=== PATIENT | female | born 1960 | race Hispanic/Latino ===

== ENCOUNTER 2023-07-01 15:12 | Emergency (ER) | payer MEDICAID ==
[~2023-07-01] VITALS: Ht 152.4 cm; Wt 81.6 kg
[2023-07-01 15:59] LABS: BASOPHILS # (AUTO) 0.06 K/uL (0.00-0.20); BASOPHILS % (AUTO) 0.4 % (0.0-5.0); EOSINOPHILS # (AUTO) 0.03 K/uL (0.00-0.70); EOSINOPHILS % (AUTO) 0.2 % (0.0-8.0); HEMATOCRIT 43.3 % (36-48); IMMATURE GRANULOCYTE ABSOLUTE 0.11 K/uL (0-1); LYMPHOCYTES # (AUTO) 1.6 K/uL (1.0-4.8); LYMPHOCYTES % (AUTO) 10.2 % (21.0-51.0); MEAN CORPUSCULAR HGB CONC 32.8 g/dL (32.0-36.0); MEAN CORPUSCULAR VOLUME 88.5 fL (79-99); MONOCYTES # (AUTO) 0.6 K/uL (0.1-1.0); MONOCYTES % (AUTO) 3.9 % (3.0-13.0); NEUTROPHILS # (AUTO) 13.6 K/uL (1.8-7.7); NEUTROPHILS % (AUTO) 84.6 % (40.0-77.0); PLATELET COUNT (AUTO) 298 K/uL (130-400); RED BLOOD CELL COUNT(AUTO) 4.89 MIL/uL (4.00-5.50)
[2023-07-01 16:20] LABS: ALBUMIN 3.6 g/dL (3.5-5.0); BILIRUBIN,TOTAL 0.2 mg/dL (0.2-1.0); TOTAL PROTEIN, SERUM 8.2 g/dL (6.0-8.3)
[2023-07-01] MEDS ORDERED: 0.9%NACL 1000ML 1,000 ML IV ONE (16:30)
[2023-07-01] MEDS ORDERED: ONDANSETRON 4MG INJ IVP ONE (16:30)
[2023-07-01 17:52] LABS: APPEARANCE,URINE CLEAR (CLEAR); BILIRUBIN,URINE NEGATIVE (NEGATIVE); COLOR,URINE LIGHT-YELLOW (YELLOW); GLUCOSE, URINE (UA) NEGATIVE (NEGATIVE); KETONES,URINE NEGATIVE (NEGATIVE); LEUKOCYTE ESTERASE ,URINE NEGATIVE Leu/uL (NEGATIVE); NITRATE,URINE NEGATIVE (NEGATIVE); OCCULT BLOOD,URINE NEGATIVE (NEGATIVE); PROTEIN,URINE 10 mg/dL (NEGATIVE); UROBILINOGEN,URINE 0.2 mg/dL (0.2-1.0)
[2023-07-01 17:59] LABS: ADD UA MICROSCOPIC YES
[2023-07-01 18:01] LABS: BACTERIA,URINE RARE /HPF (None Seen); SQUAMOUS EPITHELIAL CELL,UR FEW /HPF (0-2); WBC,URINE 0-1 /HPF (0-1); YEAST,URINE BUDDING FEW /HPF (None Seen)
[2023-07-01 18:06] VITALS: BP 148/56; PULSE 68; RESP 18; O2SAT 98
[2023-07-01] MEDS ORDERED: SULF1TAB42 PO (18:22)
[2023-07-01] MEDS ORDERED: ONDA4TAB10 PO (18:22)
== END 2023-07-01 18:41 | disposition home or self-care (01) ==
LOC: EDH 15:12
DX: L03.113 Cellulitis of right upper limb (principal); R11.2 Nausea with vomiting, unspecified; R42 Dizziness and giddiness; I10 Essential (primary) hypertension; E11.9 Type 2 diabetes mellitus without complications; E78.00 Pure hypercholesterolemia, unspecified; Z79.899 Other long term (current) drug therapy
CPT/HCPCS: 99285; 96374; 71045; 96361; 84484; 80053; 85025; 87040 ×2; 83605; 81001; 36415; 93005; J2405

== ENCOUNTER → 2024-01-17 | Outpatient (CLI) | payer MEDICAID ==
[~2024-01-17] MED LIST: ONDA4TAB10 PO; SULF1TAB42 PO
== END | disposition home or self-care (01) ==
LOC: RAH 08:33
PROVIDERS: ATTEND Family Medicine
DX: R10.13 Epigastric pain (principal); K80.20 Calculus of gallbladder without cholecystitis without obstruction; K76.0 Fatty (change of) liver, not elsewhere classified
CPT/HCPCS: 76700

== ENCOUNTER 2024-03-15 00:23 | Observation (INO) | payer MEDICAID ==
[~2024-03-15] VITALS: Ht 152.4 cm; Wt 88.9 kg
[2024-03-15 00:51] LABS: APPEARANCE,URINE CLEAR (CLEAR); BILIRUBIN,URINE NEGATIVE (NEGATIVE); COLOR,URINE LIGHT-YELLOW (YELLOW); GLUCOSE, URINE (UA) NEGATIVE (NEGATIVE); KETONES,URINE NEGATIVE (NEGATIVE); LEUKOCYTE ESTERASE ,URINE NEGATIVE Leu/uL (NEGATIVE); NITRATE,URINE NEGATIVE (NEGATIVE); PROTEIN,URINE 70 mg/dL (NEGATIVE); UROBILINOGEN,URINE 0.2 mg/dL (0.2-1.0)
[2024-03-15 00:53] LABS: ADD UA MICROSCOPIC YES
[2024-03-15 00:54] LABS: WBC,URINE 0-1 /HPF (0-1)
[2024-03-15 01:01] LABS: BASOPHILS # (AUTO) 0.04 K/uL (0.00-0.20); BASOPHILS % (AUTO) 0.2 % (0.0-5.0); EOSINOPHILS # (AUTO) 0.01 K/uL (0.00-0.70); EOSINOPHILS % (AUTO) 0.1 % (0.0-8.0); HEMATOCRIT 42.3 % (36-48); IMMATURE GRANULOCYTE ABSOLUTE 0.11 K/uL (0-1); LYMPHOCYTES % (AUTO) 5.1 % (21.0-51.0); MEAN CORPUSCULAR HEMOGLOBIN 28.9 pg (27.0-33.0); MEAN CORPUSCULAR HGB CONC 33.6 g/dL (32.0-36.0); MEAN CORPUSCULAR VOLUME 86.2 fL (79-99); MONOCYTES # (AUTO) 0.7 K/uL (0.1-1.0); MONOCYTES % (AUTO) 3.7 % (3.0-13.0); NEUTROPHILS # (AUTO) 17.7 K/uL (1.8-7.7); NEUTROPHILS % (AUTO) 90.3 % (40.0-77.0); PLATELET COUNT (AUTO) 293 K/uL (130-400); RED BLOOD CELL COUNT(AUTO) 4.91 MIL/uL (4.00-5.50); RED CELL DISTRIBUTION WIDTH 13.8 % (11.0-15.5); WHITE BLOOD COUNT (AUTO) 19.6 K/uL (4.8-10.8)
[2024-03-15] MEDS: ACETAMINOPHEN 500 MG TABLET PO ONE (01:06)
[2024-03-15] MEDS: ONDANSETRON 4MG INJ IVP ONE (01:06)
[2024-03-15 01:17] LABS: RAPID GROUP A STREP negative (NEGATIVE)
[2024-03-15 01:24] LABS: CREATININE 1.3 mg/dL (0.5-1.0); POTASSIUM 3.7 mmol/L (3.5-5.1)
[2024-03-15 01:25] LABS: SARS-CoV-2, RNA, NAAT NEGATIVE SARS CoV-2 (NEGATIVE)
[2024-03-15 01:28] LABS: INFLUENZA TYPE A Negative For Type A (NEGATIVE); INFLUENZA TYPE B Negative For Type B (NEGATIVE)
[2024-03-15 01:29] LABS: B-TYPE NATRIURETIC PEPTIDE 82 pg/mL (0-100)
[2024-03-15 01:31] LABS: ALBUMIN 3.7 g/dL (3.5-5.0); BILIRUBIN,TOTAL 0.7 mg/dL (0.2-1.0); TOTAL PROTEIN, SERUM 8.6 g/dL (6.0-8.3)
[2024-03-15 02:36] VITALS: TEMP 99
[2024-03-15] MEDS ORDERED: IBUP-1493 PO (03:50)
[2024-03-15] MEDS ORDERED: ONDA-104 PO (03:50)
[2024-03-15] MEDS: ZOSYN 3.375GM +NS 50ML IV ONE (05:55)
[2024-03-15] MEDS ORDERED: LACTULOSE 20 GM/30 ML UDCUP PO PRN (07:00)
[2024-03-15] MEDS ORDERED: HYDROMORPHONE 0.5 MG SYG (0.5MG/0.5ML) IV PRN (07:00)
[2024-03-15] MEDS ORDERED: ACETAMINOPHEN 325 MG TAB PO PRN (07:00)
[2024-03-15] MEDS ORDERED: NITROGLYCERIN 0.4 MG SL TAB SL PRN (07:00)
[2024-03-15] MEDS ORDERED: FAMOTIDINE 20MG VIAL IV PRN (07:00)
[2024-03-15] MEDS ORDERED: MAG/ALUM/SIMETH 30 ML UDCUP PO PRN (07:00)
[2024-03-15] MEDS ORDERED: HYDROCODONE/ACETAMINOPHEN 5/325 MG TAB PO PRN ×2 (07:00)
[2024-03-15] MEDS ORDERED: POTASSIUM CHLORIDE 20MEQ/100ML 100 ML IV PRN (07:00)
[2024-03-15] MEDS ORDERED: DiphenhydrAMINE HCL 50 MG/ML VIAL IV PRN (07:00)
[2024-03-15] MEDS ORDERED: GLUCAGON 1MG KIT 1 MG ML IM PRN (07:00)
[2024-03-15] MEDS ORDERED: GUAIFENESIN-DM 200/20 MG 10 ML PO PRN (07:00)
[2024-03-15] MEDS ORDERED: DIPHENHYDRAMINE HCL 25 MG CAPSULE PO PRN (07:00)
[2024-03-15] MEDS: 0.9%NACL 1000ML 1,000 ML IV SCH (07:13)
[2024-03-15] MEDS ORDERED: FURO20TA4 PO (07:35)
[2024-03-15] MEDS ORDERED: MECL-226 PO (07:35)
[2024-03-15] MEDS ORDERED: LOSA50TA64 PO (07:35)
[2024-03-15] MEDS ORDERED: INSU300I SQ (07:35)
[2024-03-15] MEDS ORDERED: ASPI-1197 PO (07:35)
[2024-03-15] MEDS ORDERED: TRIAM15CRM TP (07:35)
[2024-03-15] MEDS ORDERED: ROSU20TA23 PO (07:35)
[2024-03-15] MEDS ORDERED: ERGO500093 PO (07:35)
[2024-03-15] MEDS ORDERED: INSU100C6 SQ (07:35)
[2024-03-15] MEDS ORDERED: GABA300C PO (07:35)
[2024-03-15] MEDS ORDERED: DILT240C81 PO (07:35)
[2024-03-15] MEDS ORDERED: METF-446 PO (07:35)
[2024-03-15] MEDS ORDERED: METH-811 PO (07:35)
[2024-03-15 08:30] VITALS: BP 141/55; PULSE 80; RESP 18
[2024-03-15] MEDS: ENOXAPARIN SODIUM 40 MG/0.4 ML SYRINGE SQ SCH (09:00)
[2024-03-15] MEDS: FAMOTIDINE 20MG TAB PO SCH (09:13)
[2024-03-15] MEDS: KCL 20 MEQ ERTAB PO PRN (09:14)
[2024-03-15] MEDS: AMLODIPINE 5 MG TAB PO SCH (09:14)
[2024-03-15 11:37] VITALS: BP_SYST 110; BP_SYST 129; BP_DIAS 47; BP_DIAS 73; PULSE 70; PULSE 71; RESP 18
[2024-03-15] MEDS: ZOSYN 3.375GM+NS 50ML 50 ML IV SCH (12:31)
[2024-03-15 16:00] VITALS: BP 149/61; PULSE 69; RESP 18
[2024-03-15 20:00] VITALS: BP 135/59; PULSE 70; RESP 16
[2024-03-15 20:55] VITALS: O2SAT 97
[2024-03-16] VITALS (32 sets, daily range): BP systolic 117–185; BP diastolic 50–81; PULSE 58–95; RESP 11–20; O2SAT 95–99
[2024-03-16] MEDS: DEXTROSE 50%-WATER 50 ML DISP.SYRIN IV PRN (05:32)
[2024-03-16 06:33] LABS: BASOPHILS # (AUTO) 0.03 K/uL (0.00-0.20); BASOPHILS % (AUTO) 0.3 % (0.0-5.0); EOSINOPHILS # (AUTO) 0.18 K/uL (0.00-0.70); EOSINOPHILS % (AUTO) 2.1 % (0.0-8.0); HEMATOCRIT 40.5 % (36-48); IMMATURE GRANULOCYTE ABSOLUTE 0.04 K/uL (0-1); LYMPHOCYTES # (AUTO) 2.1 K/uL (1.0-4.8); LYMPHOCYTES % (AUTO) 23.8 % (21.0-51.0); MEAN CORPUSCULAR HEMOGLOBIN 29.5 pg (27.0-33.0); MEAN CORPUSCULAR HGB CONC 33.3 g/dL (32.0-36.0); MEAN CORPUSCULAR VOLUME 88.6 fL (79-99); MONOCYTES # (AUTO) 0.6 K/uL (0.1-1.0); MONOCYTES % (AUTO) 7.1 % (3.0-13.0); NEUTROPHILS # (AUTO) 5.7 K/uL (1.8-7.7); NEUTROPHILS % (AUTO) 66.2 % (40.0-77.0); PLATELET COUNT (AUTO) 229 K/uL (130-400); RED BLOOD CELL COUNT(AUTO) 4.57 MIL/uL (4.00-5.50); RED CELL DISTRIBUTION WIDTH 13.9 % (11.0-15.5); WHITE BLOOD COUNT (AUTO) 8.6 K/uL (4.8-10.8)
[2024-03-16 06:42] LABS: HEMOGLOBIN A1C 6.7 % (4.0-6.0)
[2024-03-16] MEDS ORDERED: SUCCINYLCHOLINE CHLORIDE 20 MG/ML 10 ML VIAL ONE (06:55)
[2024-03-16] MEDS ORDERED: LIDOCAINE PF 100MG/5ML (2%) SYRINGE 5ML ONE (06:55)
[2024-03-16] MEDS ORDERED: NEOSTIGMINE METHYLSULFATE 1MG/ML IV ONE (06:56)
[2024-03-16] MEDS ORDERED: ROCURONIUM BROMIDE 10MG/1ML 5ML VL ONE (06:56)
[2024-03-16] MEDS ORDERED: ONDANSETRON 4MG INJ ONE (06:56)
[2024-03-16] MEDS ORDERED: GLYCOPYRROLATE 0.2 MG/ML 5 ML VIAL ONE (06:56)
[2024-03-16] MEDS ORDERED: MIDAZOLAM HCL 1 MG/ML 2ML VIAL ONE (06:56)
[2024-03-16] MEDS ORDERED: PROPOFOL 10 MG/ML 20ML VIAL IV ONE (06:56)
[2024-03-16] MEDS ORDERED: DEXAMETHASONE SOD PHOSPHATE 10MG/ML 1ML VIAL ONE (06:56)
[2024-03-16] MEDS ORDERED: FENTANYL CITRATE PF 50 MCG/1 ML 2ML VIAL ONE ×2 (06:57→09:44)
[2024-03-16 06:59] LABS: INR 0.96 (0.85-1.15); PROTHROMBIN TIME 11.4 SEC (9.6-11.6)
[2024-03-16 07:00] LABS: PARTIAL THROMBOPLASTIN TIME 29.8 SEC (26.3-35.5)
[2024-03-16 07:03] LABS: % IRON SATURATION 12.8 % (22-44)
[2024-03-16] MEDS ORDERED: PHENYLEPHRINE HCL 10 MG/ML 1ML VIAL IV ONE (07:04)
[2024-03-16 07:10] LABS: ALBUMIN 2.8 g/dL (3.5-5.0); BILIRUBIN,TOTAL 0.8 mg/dL (0.2-1.0); CREATININE 1.1 mg/dL (0.5-1.0); MAGNESIUM 1.8 mg/dL (1.80-2.40); PHOSPHORUS 3.1 mg/dL (2.5-4.9); POTASSIUM 3.6 mmol/L (3.5-5.1); THYROID STIMULATING HORMONE 1.36 uIU/mL (0.36-3.74); TOTAL PROTEIN, SERUM 7.1 g/dL (6.0-8.3)
[2024-03-16] MEDS: BUPIVACAINE/PF 0.25% 30ML VIAL IJ ONE (09:33)
[2024-03-16] MEDS ORDERED: BUPIVACAINE/PF 0.25% 30ML VIAL IJ ONE (09:43)
[2024-03-16] MEDS ORDERED: CEFAZOLIN SODIUM 1 GM VIAL ONE (09:43)
[2024-03-16] MEDS: 0.9%NACL 1000ML 1,000 ML IV ONE (10:38)
[2024-03-16] MEDS: HYDRALAZINE 20MG/ML VIAL ONE (12:02)
[2024-03-16] MEDS: MEPERIDINE-PF 25 MG/ML SYG ONE (12:02)
[2024-03-16] MEDS: ONDANSETRON 4MG INJ ONE (12:03)
[2024-03-16] MEDS: KETOROLAC 30MG VIAL (30MG/ML) ONE (12:03)
[2024-03-16] MEDS: ACETAMINOPHEN 1,000 MG/100 ML VIAL IV ONE (12:03)
[2024-03-16] MEDS: DEXTROSE 50%-WATER 50 ML DISP.SYRIN IV ONE (12:04)
[2024-03-16] MEDS: POTASSIUM CHLORIDE 10% ELIXIR 20 MEQ/15 ML UDCUP PO PRN (16:50)
[2024-03-16] MEDS: MAGNESIUM 2GM PREMIX 50ML 50 ML IV PRN (16:50)
[2024-03-16] MEDS: ONDANSETRON 4MG INJ IV PRN (20:29)
[2024-03-16] MEDS: OXYCODONE/ACETAMIN 5/325MG TAB PO PRN (20:29)
[2024-03-16] MEDS: HYDROMORPHONE 1 MG INJ IVP PRN (21:22)
[2024-03-17] MEDS: ACETAMINOPHEN 325 MG TAB PO PRN (03:08)
[2024-03-17 04:00] VITALS: BP 154/73; PULSE 80; RESP 20
[2024-03-17 05:38] LABS: BASOPHILS # (AUTO) 0.03 K/uL (0.00-0.20); BASOPHILS % (AUTO) 0.2 % (0.0-5.0); HEMATOCRIT 39.8 % (36-48); IMMATURE GRANULOCYTE ABSOLUTE 0.11 K/uL (0-1); LYMPHOCYTES # (AUTO) 1.8 K/uL (1.0-4.8); LYMPHOCYTES % (AUTO) 9.2 % (21.0-51.0); MEAN CORPUSCULAR HEMOGLOBIN 29.2 pg (27.0-33.0); MEAN CORPUSCULAR HGB CONC 32.9 g/dL (32.0-36.0); MEAN CORPUSCULAR VOLUME 88.6 fL (79-99); MONOCYTES # (AUTO) 0.9 K/uL (0.1-1.0); MONOCYTES % (AUTO) 4.7 % (3.0-13.0); NEUTROPHILS # (AUTO) 16.2 K/uL (1.8-7.7); NEUTROPHILS % (AUTO) 85.3 % (40.0-77.0); PLATELET COUNT (AUTO) 262 K/uL (130-400); RED BLOOD CELL COUNT(AUTO) 4.49 MIL/uL (4.00-5.50); RED CELL DISTRIBUTION WIDTH 13.9 % (11.0-15.5)
[2024-03-17 06:04] LABS: ALBUMIN 2.5 g/dL (3.5-5.0); BILIRUBIN,TOTAL 0.5 mg/dL (0.2-1.0); CREATININE 1.1 mg/dL (0.5-1.0); POTASSIUM 4.5 mmol/L (3.5-5.1); TOTAL PROTEIN, SERUM 7.2 g/dL (6.0-8.3)
[2024-03-17 08:00] VITALS: BP 161/77; PULSE 65; RESP 18; O2SAT 94
[2024-03-17 12:00] VITALS: BP 161/73; PULSE 67; RESP 18
== END 2024-03-17 19:05 | disposition home or self-care (01) ==
LOC: EDH 00:23 → EDHIP 00:24 → INTOOBSV 00:24 → UNDOADMIN 06:40 → EDHIP 06:40 → 3CH 08:30
PROVIDERS: ADMIT Internal Medicine; ATTEND Internal Medicine
DX: A41.9 Sepsis, unspecified organism (principal); Z20.822 Contact with and (suspected) exposure to COVID-19; K80.00 Calculus of gallbladder with acute cholecystitis without obstruction; K82.8 Other specified diseases of gallbladder; K85.10 Biliary acute pancreatitis without necrosis or infection; I10 Essential (primary) hypertension; E11.9 Type 2 diabetes mellitus without complications; E78.00 Pure hypercholesterolemia, unspecified; F41.9 Anxiety disorder, unspecified; E66.01 Morbid (severe) obesity due to excess calories; E78.5 Hyperlipidemia, unspecified; R11.2 Nausea with vomiting, unspecified; R32 Unspecified urinary incontinence; Z85.528 Personal history of other malignant neoplasm of kidney; Z90.5 Acquired absence of kidney; Z90.710 Acquired absence of both cervix and uterus; Z79.899 Other long term (current) drug therapy
CPT/HCPCS: 96361 ×3; 96366 ×3; 99285; 84484; 80053 ×3; 83880; 85025 ×3; 87040 ×2; 87880; 87804 ×2; 82948 ×13; 83605; 81001; 36415 ×3; 87635; 71045; 74176; 78226; 76705; 96365; 96375 ×3; 93005; 47562; 96376 ×2; 83036; 84443; 83540; 83550; 83735 ×2; 84100; 85610; 85730; 96372; 88304; J2405 ×4; J2543 ×8; A9537; J7030 ×2; A4600; J3475; J3010 ×2; J0690 ×2; J1170; J1100; J0330; J0665 ×2; J7070 ×2; J3490 ×4; J0360; J2250; J1885; J2710; J2175; J2371; A6206; C1769 ×3; A4649 ×4; A4930; A4223; A4222; A4216; G0378 ×4; J1650; J2001; J2704

== ENCOUNTER 2025-02-16 22:58 | Emergency (ER) | payer MEDICAID ==
[~2025-02-16] VITALS: Ht 152.4 cm; Wt 90.7 kg
[~2025-02-16 22:58] MED LIST changes: +AMLO-258 PO; +AMOX1TAB16 PO; +ASPI-1197 PO; +DILT240C81 PO; +ERGO500093 PO; +FURO20TA4 PO; +GABA300C PO; +INSU100C6 SQ; +INSU300I SQ; +LOSA50TA64 PO; +MECL-226 PO; +METF-446 PO; +METH-811 PO; +ONDA-104 PO; -ONDA4TAB10 PO; +ROSU20TA23 PO; -SULF1TAB42 PO; +TRIAM15CRM TP
[2025-02-16 23:00] VITALS: BP 165/72; PULSE 65; RESP 20; TEMP 98.6
--- NOTE | 2025-02-16 23:11 | ERN ---
ED Note History of Present Illness Stated Complaint: FALL Chief Complaint: Mechanical Fall Time Seen by MD: 23:06 Time Seen by Midlevel: 23:08 Dictation: Ms. Mcconnell is a 64-year-old female with history of obesity, type 2 diabetes, hypertension, hyperlipidemia, kidney stones, vertigo, and anxiety who presented to the emergency department this evening for evaluation after a fall. Patient states she has history of vertigo for which she takes meclizine every morning. She states that she became dizzy this evening and fell onto her right side. She states she feels like the floor is moving . She states she did not hit her head or lose consciousness. She is complaining of pain to the right abdomen as well as right low back/flank and frequent urination. She complains of some chills. She denies having shortness of breath, cough, chest pain, palpitations, edema, nausea, vomiting, hematemesis, melena, hematochezia, diarrhea, constipation, dysuria, headache, or dizziness Allergies: Coded Allergies: candesartan (Unverified Allergy, Unknown, 03/15/24) lisinopril (Unverified Allergy, Unknown, 03/15/24) Emergency Care CONFERENCE SERVICE COORDINATOR: None Home Meds Active Scripts Amlodipine Besylate (Amlodipine Besylate) 10 Mg Tablet, 10 MG PO DAILY for 30 Days, #30 TAB 0 Refills Prov:SAMMIE LOPEZ LOGISTICS RESEARCH ENGINEER 03/28/24 Amoxicillin/Potassium Clav (Amox Tr-K Clv 875-125 mg Tab) 875 Mg-125 Mg Tablet, 1 EACH PO BID, #14 TAB 0 Refills Prov:SAMMIE LOPEZ LOGISTICS RESEARCH ENGINEER 03/28/24 Ondansetron HCl (Ondansetron HCl) 4 Mg Tablet, 4 MG PO TIDP PRN for VOMITING, #20 TAB Prov:JANKI DAVID MD 03/15/24 Reported Medications Ergocalciferol (Vitamin D2) (Vitamin D2) 1,250 Mcg (21131 Unit) Capsule, 1250 MCG PO WEEKLY, CAP 03/15/24 Triamcinolone Acetonide (Triamcinolone Acetonide) 0.1 % Cream.gm., 15 GM TP UNKNOWN, APPL 03/15/24 Insulin Glargine,Hum.rec.anlog ([place] Solostar) 300 Unit/Ml (1.5 Ml) Insuln.pen, 70 UNIT SQ BID, SYRINGE 03/15/24 Insulin Aspart (Novolog) 100 Unit/Ml Cartridge, 30 UNITS SQ BID, CARTRIDGE 03/15/24 Methocarbamol (Methocarbamol) 500 Mg Tablet, 500 MG PO BID, TAB 03/15/24 Metformin HCl (Metformin HCl) 1,000 Mg Tablet, 1000 MG PO BID, TAB 03/15/24 Meclizine HCl (Meclizine HCl) 12.5 Mg Tablet, 12.5 MG PO TID, TAB 03/15/24 Losartan Potassium (Losartan Potassium) 50 Mg Tablet, 50 MG PO DAILY, TAB 03/15/24 Gabapentin (Neurontin) 300 Mg Capsule, 300 MG PO HS, CAP 03/15/24 Furosemide (Furosemide) 20 Mg Tablet, 20 MG PO DAILY, TAB 03/15/24 Diltiazem HCl (Diltiazem ER) 240 Mg Capsule.er, 240 MG PO DAILY, CAP 03/15/24 Rosuvastatin Calcium (Crestor) 20 Mg Tablet, 20 MG PO HS, TAB 03/15/24 Aspirin (Aspirin) 81 Mg Tab.chew, 81 MG PO DAILY, TAB.CHEW 03/15/24 Past Medical History Past Medical History: Anxiety, Diabetes-Type II, High Cholesterol, Hypertension, Kidney Stone, Other Additional Past Medical Hx: VERTIGO, POOR HISTORIAN Surgical History: Hysterectomy, Cholecystectomy, Other Surgical History Other: PT HAS ONLY LEFT KIDNEY Social History: Negative, Lives with family History: Not Applicable RN Note Reviewed/Agreed w/PFSH: Yes Review of System Dictation REVIEW OF SYSTEMS: CONSTITUTIONAL: Patient denies fevers, chills, sweats and weight changes. EYES: Patient denies any visual symptoms. EARS, NOSE, AND THROAT: No difficulties with hearing. No symptoms of rhinitis or sore throat. CARDIOVASCULAR: Patient denies chest pains, palpitations, orthopnea and paroxysmal nocturnal dyspnea. RESPIRATORY: No dyspnea on exertion, no wheezing or cough. GI: No nausea, vomiting, diarrhea, constipation, hematochezia or melena. Reports pain to the right side of the abdomen : No urinary hesitancy or dribbling. No nocturia or urinary frequency. No abnormal urethral discharge. Reports right flank/low back pain MUSCULOSKELETAL: No myalgias or arthralgias. NEUROLOGIC: No chronic headaches, no seizures. Patient denies numbness, tingling or weakness. Reports dizziness. States she feels the floor move PSYCHIATRIC: Patient denies problems with mood disturbance. No problems with anxiety. ENDOCRINE: No excessive urination or excessive thirst. DERMATOLOGIC: Patient denies any rashes or skin changes. Initial Vital Sign VS Vital Signs Date Time Temp Pulse Resp B/P (MAP) Pulse Ox O2 Delivery O2 Flow Rate FiO2 02/16/25 23:00 98.6 65 20 165/72 97 Room Air Physical Exam Dictation Vital signs: Reviewed. Afebrile Constitutional: No acute distress. Non-toxic appearing. Accompanied by daughter Head/Face: Normocephalic, atraumatic. Eyes: Periorbital areas with no swelling, redness, or edema. Lids and lashes are normal. Conjunctival injection is absent. Sclera anicteric. Pupils equal, round, reactive to light. ENT: Pinnas intact and no signs of trauma or erythema. Ear canals clear and no discharge. TMs no erythema. No nasal discharge or bleeding noted. Oropharynx with no exudate, redness, swelling, masses, exudates, or evidence of obstruction. Uvula midline. Mucous membranes moist. Neck: Trachea midline, no masses palpated, and no cervical lymphadenopathy. No swelling. Supple, full range of motion. Chest/Axilla: No tenderness, no crepitus, no paradoxical movement, no retractions. Cardiovascular: Regular rate, regular rhythm, no murmur, no gallops. Symmetric pulses. No peripheral edema. Twelve lead EKG reflects a sinus rhythm without ST elevation or depression. BP 165/72 Respiratory: Respirations even and unlabored. Lung sounds clear; no wheezes, rales or rhonchi. Gastrointestinal: Obese No distention is appreciated. Bowel sounds are normal. No mass or organomegaly . Tenderness upon palpation right upper quadrant and right lower quadrant.. No rebound. No rigidity. No voluntary or involuntary guarding. No Fragoso's sign. : urine cloudy/yellow. Negative CVA tenderness bilaterally Neurological: Normal speech, gross motor function intact, gross sensory function intact. No focal weakness/Paresthesia. Speech is clear. NIHSS=0 Musculoskeletal/Extremities: All extremities have full range of motion, no pain or tenderness on palpation. Symmetric pulses. Integumentary: Intact. Skin is normal color, warm and dry. Cap refill less than 3 seconds. Results (Laboratory/Radiology) Laboratory/Radiology Laboratory Tests Test 02/16/25 23:23 02/16/25 23:45 White Blood Count 12.8 K/uL (4.8-10.8) H Red Blood Count 4.91 MIL/uL (4.00-5.50) Hemoglobin 14.2 g/dL (12.0-16.0) Hematocrit 43.8 % (36-48) Mean Corpuscular Volume 89.2 fL (79-99) Mean Corpuscular Hemoglobin 28.9 pg (27.0-33.0) Mean Corpuscular Hemoglobin Concent 32.4 g/dL (32.0-36.0) Red Cell Distribution Width 13.2 % (11.0-15.5) Platelet Count 314 K/uL (130-400) Mean Platelet Volume 9.4 fL (7.5-10.5) Immature Granulocyte % (Auto) 0.5 % (0-1) Neutrophils (%) (Auto) 65.4 % (40.0-77.0) Lymphocytes (%) (Auto) 25.9 % (21.0-51.0) Monocytes (%) (Auto) 5.9 % (3.0-13.0) Eosinophils (%) (Auto) 2.0 % (0.0-8.0) Basophils (%) (Auto) 0.3 % (0.0-5.0) Neutrophils # (Auto) 8.4 K/uL (1.8-7.7) H Lymphocytes # (Auto) 3.3 K/uL (1.0-4.8) Monocytes # (Auto) 0.8 K/uL (0.1-1.0) Eosinophils # (Auto) 0.25 K/uL (0.00-0.70) Basophils # (Auto) 0.04 K/uL (0.00-0.20) Absolute Immature Granulocyte (auto 0.07 K/uL (0-1) Nucleated Red Blood Cells 0.0 % (0.0-0.19) Sodium Level 133 mmol/L (136-145) L Potassium Level 4.1 mmol/L (3.5-5.1) Chloride Level 98 mmol/L (101-111) L Carbon Dioxide Level 27 mmol/L (21-32) Blood Urea Nitrogen 23 mg/dL (7-18) H Creatinine 1.2 mg/dL (0.5-1.0) H Glomerular Filtration Rate Calc 51 mL/min (>90) Random Glucose 110 mg/dL (70-105) H Total Calcium 9.2 mg/dL (8.5-10.1) Troponin I High Sensitivity 5 ng/L (4-50) Urine Color COLORLESS (YELLOW) Urine Appearance CLEAR (CLEAR) Urine pH 6.0 (5.0-8.0) Urine Specific [place] 1.005 (1.001-1.031) Urine Protein 10 mg/dL (NEGATIVE) H Urine Glucose (UA) NEGATIVE mg/dL (NEGATIVE) Urine Ketones NEGATIVE mg/dL (NEGATIVE) Urine Occult Blood NEGATIVE (NEGATIVE) Urine Nitrate NEGATIVE (NEGATIVE) Urine Bilirubin NEGATIVE mg/dL (NEGATIVE) Urine Urobilinogen 0.2 mg/dL (0.2-1.0) Urine Leukocyte Esterase NEGATIVE Bam/uL Urine RBC 0-1 /HPF (0-1) Urine WBC 6-10 /HPF (0-1) H Urine Squamous Epithelial Cells FEW /HPF (0-2) Urine Bacteria MANY /HPF (None Seen) Labs Reviewed?: Yes EKG Comment: EKG Interpretation: Time Reviewed: 2337 Ventricular rate: [79] bpm [place] Interval: [183] ms QRS duration: [74] ms No ST segment elevation or depression. Clinical impression: Sinus rhythm EKG Reviewed and interpreted by Dr. Alex Novak CT Scan Comment: PATIENT: RODRI MCCONNELL MR#: [id number] : 1960 SEX: F AGE: 64 LOCATION: ED ORDER 09 STATUS: REG ER REPORT#: [id number] SERVICE 08 REASON: right sided abdominal/flank pain, fall ORDERING PHYSICIAN: WINNIE EUGENE NP PROCEDURE: ABD PEL WO - CT ABDOMEN/PELVIS W/O CONTRAST CT ABDOMEN/PELVIS W/O CONTRAST HISTORY: Right-sided abdominal pain COMPARISON: 03/25/2024 TECHNIQUE: Multiple sequential axial images of the abdomen and pelvis were obtained from the dome of the diaphragm through symphysis pubis. Patient was not given contrast through intravenous route. Oral contrast was not given. FINDINGS: No pleural effusion is seen bilaterally. There is no evidence of parenchymal disease or pulmonary nodule of the visualized lower lungs. Degenerative changes of the thoracolumbar spine are present. The heart is not enlarged. Coronary arterial calcifications are seen. Liver measures 16 cm. The liver, spleen, adrenal glands and pancreas are unremarkable. There is no evidence of hydronephrosis bilaterally. Right kidney is not seen. No hydronephrosis is seen of left kidney. There is periumbilical hernia with fat content. There is mild diverticulosis. Fecal material is seen in the colon. There are normal size retroperitoneal and mesenteric lymph nodes. No ascites is seen. Atherosclerotic changes are present. Pelvic sidewalls are symmetric bilaterally. Bladder is well distended without wall thickening. IMPRESSION: 1. Periumbilical hernia with fat content. Right kidney is not seen. Mild diverticulosis. CT was performed with one or more following dose reduction techniques: automated exposure control, adjustment of the mA and kv according to patient's size, or use of a iterative reconstruction technique. DICTATED BY: LEIDA PRICE MD DATE: 02/16/252346 ELECTRONICALLY SIGNED BY: LEIDA PRICE MD ED Course ED Course Orders Procedure Category Date Status Time Urinalysis Profile LAB 02/16/25 Complete 23:09 12 Lead Ekg Tracing- EKG 02/16/25 Complete Technical 23:09 Cbc With Differential LAB 02/16/25 Complete 23:09 Basic Metabolic Panel LAB 02/16/25 Complete 23:09 Troponin I High LAB 02/16/25 Complete Sensitivity 23:09 Ct Abdomen/Pelvis W/O CT 02/16/25 Resulted Contrast 23:09 Culture Urine HECTOR 02/17/25 In Process 00:20 Vital Signs Date Time Temp Pulse Resp B/P (MAP) Pulse Ox O2 Delivery O2 Flow Rate FiO2 02/16/25 23:00 98.6 65 20 165/72 97 Room Air Uneventful ED course. Vital signs stable; afebrile with room air SpO2 97%. Normotensive. Laboratory findings as noted below. WBCs 12.8, H/H stable, Na/Cl 133/98, BUN 23/1.2, glucose 110, and troponin negative. UA positive protein and UWBC 6-10. Culture pending. She received doses Valium and cephalexin. She was able to ambulate with steady gait. Findings were discussed with patient and her daughter and all questions were answered. Medical Decision Making MDM MDM: Differential diagnosis: Cardiac arrhythmia, UTI, vertigo, intra-abdominal injury Rationale: Tests considered and ordered secondary to shared decision making include: Lab, EKG, CT Previous outside records reviewed: Old ER visits. Risk of complication and/or morbidity or mortality of patient management: None Medications-Per medication reconciliation Need for hospitalization: Patient does not meet criteria for hospitalization. Need for emergency major/minor surgery: No There are no social concerns with this patient. Prescription drug management: Ibuprofen, Flexeril, OTC Tylenol Prescriptions will include symptomatic care Patient's prior external medical records from other ER visits were reviewed by me as indicated. Prior testing and results from previous visits were reviewed. Prior tests were taken into account with medical decision making and resource utilization, independent historian/historians were used to obtain complete medical history. I independently interpreted the test that were performed, results were reviewed by me and considered findings on radiology if ordered. Medical management and examination interpretation discussions were had by me wit h other qualified healthcare professionals as indicated for the patient's care. DX & DISP Disposition: Discharge Departure Impression: Primary Impression: Vertigo Additional Impressions: UTI (urinary tract infection), Periumbilical hernia, Diverticulosis Condition: Stable Scripts Ibuprofen (Ibuprofen) 600 Mg Tablet 600 MG PO q8 hr PRN PRN for PAIN, #12 TAB 0 Refills Prov: WINNIE EUGENE OUTSOLE PARAFFINER 02/17/25 Cyclobenzaprine HCl (Cyclobenzaprine HCl) 5 Mg Tablet 5 TAB PO HSPRN PRN for muscle spasms, #6 TAB 0 Refills Prov: WINNIE EUGENE OUTSOLE PARAFFINER 02/17/25 Additional Instructions: Rest. Increase water intake. High-fiber diet (whole grains, fruits, vegetables, legumes), consider fiber supplements such as Metamucil. Monitor closely for worsening abdominal pain (usually left side), fever, nausea and vomiting, or bloody stools. Avoid heavy lifting greater than 10-15 lb and activities and strain the abdominal muscles. Support the hernia area when coughing and sneezing. Tylenol or ibuprofen as needed for discomfort. May take Flexeril as needed for muscle spasms at bedtime. Follow up with your primary care physician next week. You may require referral to a general surgeon for further evaluation of hernia. Referrals: JONNY SCHULTZ MD (PCP) Time of Disposition: 00:39 WINNIE EUGENE NP Feb 16, 2025 23:10
[2025-02-16 23:28] LABS: BASOPHILS # (AUTO) 0.04 K/uL (0.00-0.20); BASOPHILS % (AUTO) 0.3 % (0.0-5.0); EOSINOPHILS # (AUTO) 0.25 K/uL (0.00-0.70); HEMATOCRIT 43.8 % (36-48); IMMATURE GRANULOCYTE ABSOLUTE 0.07 K/uL (0-1); LYMPHOCYTES # (AUTO) 3.3 K/uL (1.0-4.8); LYMPHOCYTES % (AUTO) 25.9 % (21.0-51.0); MEAN CORPUSCULAR HEMOGLOBIN 28.9 pg (27.0-33.0); MEAN CORPUSCULAR HGB CONC 32.4 g/dL (32.0-36.0); MEAN CORPUSCULAR VOLUME 89.2 fL (79-99); MONOCYTES # (AUTO) 0.8 K/uL (0.1-1.0); MONOCYTES % (AUTO) 5.9 % (3.0-13.0); NEUTROPHILS # (AUTO) 8.4 K/uL (1.8-7.7); NEUTROPHILS % (AUTO) 65.4 % (40.0-77.0); PLATELET COUNT (AUTO) 314 K/uL (130-400); RED BLOOD CELL COUNT(AUTO) 4.91 MIL/uL (4.00-5.50); RED CELL DISTRIBUTION WIDTH 13.2 % (11.0-15.5); WHITE BLOOD COUNT (AUTO) 12.8 K/uL (4.8-10.8)
[2025-02-16 23:39] LABS: CREATININE 1.2 mg/dL (0.5-1.0); POTASSIUM 4.1 mmol/L (3.5-5.1)
--- NOTE | 2025-02-16 23:40 | EKG ---
[facility] Test Date: 2025-02-16 Test Time: 23:38:41 Pat Name: RODRI MCCONNELL Department: ED Room: Gender: F Material Hauler: [id number] : 1960 Requested By: WINNIE EUGENE Order Number: [id number] Reading MD: Tiffanie Gaxiola Measurements Intervals [place] Rate: 79 P: 43 VT: 183 QRS: 9 QRSD: 74 T: 81 QT: 384 QTc: 442 Interpretive Statements Sinus rhythm Compared to ECG 03/25/2024 19:26:50 No significant changes Electronically Signed On 02-17-2025 16:51:29 CDT by Tiffanie Gaxiola Please click the below link to view image of tracing.
--- NOTE | 2025-02-17 00:01 | HMCIMG ---
CT ABDOMEN/PELVIS W/O CONTRAST HISTORY: Right-sided abdominal pain COMPARISON: 03/25/2024 TECHNIQUE: Multiple sequential axial images of the abdomen and pelvis were obtained from the dome of the diaphragm through symphysis pubis. Patient was not given contrast through intravenous route. Oral contrast was not given. FINDINGS: No pleural effusion is seen bilaterally. There is no evidence of parenchymal disease or pulmonary nodule of the visualized lower lungs. Degenerative changes of the thoracolumbar spine are present. The heart is not enlarged. Coronary arterial calcifications are seen. Liver measures 16 cm. The liver, spleen, adrenal glands and pancreas are unremarkable. There is no evidence of hydronephrosis bilaterally. Right kidney is not seen. No hydronephrosis is seen of left kidney. There is periumbilical hernia with fat content. There is mild diverticulosis. Fecal material is seen in the colon. There are normal size retroperitoneal and mesenteric lymph nodes. No ascites is seen. Atherosclerotic changes are present. Pelvic sidewalls are symmetric bilaterally. Bladder is well distended without wall thickening. IMPRESSION: 1. Periumbilical hernia with fat content. Right kidney is not seen. Mild diverticulosis. CT was performed with one or more following dose reduction techniques: automated exposure control, adjustment of the mA and kv according to patient's size, or use of a iterative reconstruction technique.
[2025-02-17 00:13] LABS: APPEARANCE,URINE CLEAR (CLEAR); BILIRUBIN,URINE NEGATIVE (NEGATIVE); COLOR,URINE COLORLESS (YELLOW); GLUCOSE, URINE (UA) NEGATIVE (NEGATIVE); KETONES,URINE NEGATIVE (NEGATIVE); LEUKOCYTE ESTERASE ,URINE NEGATIVE Leu/uL (NEGATIVE); NITRATE,URINE NEGATIVE (NEGATIVE); OCCULT BLOOD,URINE NEGATIVE (NEGATIVE); PROTEIN,URINE 10 mg/dL (NEGATIVE); UROBILINOGEN,URINE 0.2 mg/dL (0.2-1.0)
[2025-02-17 00:18] LABS: ADD UA MICROSCOPIC YES
[2025-02-17 00:19] LABS: BACTERIA,URINE MANY /HPF (None Seen); MUCUS,URINE RARE LPF (None Seen); RBC,URINE 0-1 /HPF (0-1); SQUAMOUS EPITHELIAL CELL,UR FEW /HPF (0-2)
[2025-02-17] MEDS ORDERED: IBUP-2070 PO (00:37)
[2025-02-17] MEDS ORDERED: CYCL5TAB3 PO (00:37)
[2025-02-17] MEDS: diazePAM 2 MG TAB PO ONE (00:51)
[2025-02-17] MEDS: cePHALexin 500 MG CAPSULE PO ONE (00:51)
== END 2025-02-17 01:11 | disposition home or self-care (01) ==
LOC: EDH 22:58
DX: R42 Dizziness and giddiness (principal); N39.0 Urinary tract infection, site not specified; K42.9 Umbilical hernia without obstruction or gangrene; K57.30 Diverticulosis of large intestine without perforation or abscess without bleeding; E11.9 Type 2 diabetes mellitus without complications; E78.00 Pure hypercholesterolemia, unspecified; I10 Essential (primary) hypertension; Z79.4 Long term (current) use of insulin; Z79.82 Long term (current) use of aspirin; Z79.84 Long term (current) use of oral hypoglycemic drugs; Z79.899 Other long term (current) drug therapy; Z88.8 Allergy status to other drugs, medicaments and biological substances; Z90.49 Acquired absence of other specified parts of digestive tract; Z90.710 Acquired absence of both cervix and uterus; W18.39XA Other fall on same level, initial encounter; Y93.89 Activity, other specified; Y92.89 Other specified places as the place of occurrence of the external cause; Y99.8 Other external cause status
CPT/HCPCS: 36415; 74176; 80048; 81001; 84484; 85025; 87086; 87186; 93005; 99284